=== PATIENT | female | born 1990 | race Caucasian/White ===

== ENCOUNTER 2018-06-21 17:20 | Emergency (ER) | payer OTHER ==
[~2018-06-21] VITALS: Ht 167.6 cm; Wt 63.2 kg
[~2018-06-21 17:20] MED LIST: FLEXERIL10 MG PO; IBUPROFEN800 MG PO; LORTAB 5-325 M1 EACH PO; MULTIVITAMIN1 EAC2 PO; NAPROSYN500 MG PO; NIFEDIPINE10 MG PO; PRENATAL TABLE1 EAC3 PO; PRENATAL VITAM1 EA10 PO; SEASONIQUE 01 TABLET PO; TYLENOL EXTRA500 MG PO; VITAMIN D400 UNIT PO
[2018-06-21 18:16] LABS: APPEARANCE CLEAR ((CLEAR)); BILIRUBIN NEGATIVE; BLOOD LARGE; COLOR YELLOW ((YELLOW)); GLUCOSE (STRIP) NEGATIVE; KETONES NEGATIVE; LEUKOCYTES MODERATE; NITRITE NEGATIVE; PROTEIN (STRIP) NEGATIVE; SPECIFIC GRAVITY 1.014 (1.000-1.030); UROBILINOGEN 0.2 MG/DL (0.2-1.0)
[2018-06-21 18:17] LABS: HEMATOCRIT 38.6 % (36.0-46.0); HEMOGLOBIN 13.7 G/DL (11.9-15.5); MCH 31.6 PG (29.0-34.0); MCHC 35.5 G/DL (30.0-36.0); MCV 89.1 FL (83-99); PLATELET COUNT 232 K/uL (156-360); RBC DIS.WIDTH-CV 11.7 % (11.8-14.6); RBC DIS.WIDTH-SD 37.7 % (39-53); RED BLOOD COUNT 4.33 M/uL (3.80-5.20); WHITE BLOOD COUNT 8.3 K/uL (4.1-10.2)
[2018-06-21 18:26] LABS: BACTERIA NONE SEEN /HPF; EPITHELIAL CELLS RARE /HPF; HYALINE CASTS 0-5 /LPF; MUCUS TRACE /LPF; RED BLOOD CELLS TNTC /HPF (0-5); UCUL ADDED? YES; WHITE BLOOD CELLS 30-40 /HPF (0-5)
[2018-06-21 18:28] LABS: ALBUMIN 4.1 g/dL (3.2-4.8); CHLORIDE 102 mEq/L (99-109); POTASSIUM 4.2 mEq/L (3.7-5.4); SODIUM 138 mEq/L (136-147)
[2018-06-21 18:30] LABS: GLUCOSE 86 mg/dL (70-99); TOTAL PROTEIN 7.5 g/dL (6.4-8.3)
[2018-06-21 18:32] LABS: TOTAL BILIRUBIN 0.6 mg/dL (0.0-1.0)
[2018-06-21 18:34] LABS: ALKALINE PHOSPHATASE 124 IU/L (3-129); CREATININE 0.8 mg/dL (0.6-1.3); GFR ESTIMATE (CALCULATED) > 59 mL/min/
[2018-06-21 18:35] LABS: AST (GOT) 21 IU/L (2-34); UREA NITROGEN (BUN) 13 mg/dL (9-23)
[2018-06-21 18:37] LABS: ALT (GPT) 13 IU/L (3-49)
[2018-06-21 18:46] LABS: QUANTITATIVE HCG 188.8 MIU/ML
[2018-06-21 19:06] LABS: LIPASE 10 U/L (1.0-51.0)
[2018-06-21 19:18] LABS: PTT 30.4 SEC (25-37)
[2018-06-21] MEDS ORDERED: NAPROSYN500 MG PO (22:08)
[2018-06-21 22:42] VITALS: BP 136/83
== END 2018-06-21 22:43 | disposition home or self-care (01) ==
LOC: EME 17:20
PROVIDERS: Physician Assistant
DX: N13.2 Hydronephrosis with renal and ureteral calculous obstruction (principal)
CPT/HCPCS: 74176; 76856; 76857; 80053; 81003; 83690; 84702; 85027; 85610; 85730; 87086; 99281; 99284